=== PATIENT | male | born 1960 | race Hispanic/Latino ===

== ENCOUNTER 2017-08-03 16:48 | Emergency (ER) | payer SELFPAY ==
[~2017-08-03] VITALS: Ht 172.7 cm; Wt 103.0 kg
[2017-08-03 17:32] LABS: BASOPHILS # (AUTO) 0.1 (0.0-0.1); BASOPHILS % 0.4 % (0.0-1.0); EOSINOPHILS # (AUTO) 0.1 (0.0-0.4); EOSINOPHILS % 1.2 % (0.0-6.0); HEMATOCRIT 46.9 % (38.2-49.6); HEMOGLOBIN 15.7 g/dL (14.0-18.0); LYMPHOCYTES # (AUTO) 1.9 (1.0-3.2); MEAN CORPUSCULAR HEMOGLOBIN 30.4 pg (28-32); MEAN CORPUSCULAR HGB CONC 33.5 g/dL (31-35); MEAN CORPUSCULAR VOLUME 90.7 fL (81-99); MONOCYTES % 8.5 % (4.4-11.3); NEUTROPHILS # (AUTO) 8.6 (2.1-6.9); NEUTROPHILS % 73.6 % (38.7-80.0); PLATELET COUNT 226 x10e3/uL (140-360); RED BLOOD COUNT 5.17 x10e6/uL (4.3-5.7); RED CELL DISTRIBUTION WIDTH 14.6 % (11.7-14.4)
[2017-08-03 17:53] LABS: CALCIUM 8.7 mg/dL (8.4-10.2); CREATININE, SERUM 1.45 mg/dL (0.72-1.25)
--- NOTE | 2017-08-03 19:17 | Diagnostic Imaging Report ---
Two view chest x-ray INDICATION: Shortness of breath COMPARISON: None. FINDINGS: The cardiomediastinal silhouette is enlarged. There is no evidence of hilar lymphadenopathy. The pulmonary vascular markings are normal. Right basilar airspace opacity with associated pleural effusion. The left lung appears clear. Evaluation of the osseous structures demonstrates no focal abnormality. IMPRESSION: 1. Cardiomegaly without vascular congestion. 2. Right basilar airspace opacity is suggestive of either pneumonia with small associated pleural effusion. Please correlate with signs/symptoms of infection. Another entity to consider is infarct from pulmonary embolus. Signed by: Dr. Antoinette Anguiano MD on 08/03/2017 7:14 PM
[2017-08-03] MEDS ORDERED: SODIUM CHLORIDE 0.9% 500ML 500 ML IV ONE (20:15)
--- NOTE | 2017-08-03 21:53 | Diagnostic Imaging Report ---
EXAM: CT CHEST W DATE: 08/03/2017 7:33 PM Time stamp on exam: 2113 hours INDICATION: Leg swelling, shortness of breath, cough, abnormal chest x-ray COMPARISON: PA and lateral view of the chest August 03, 2017 TECHNIQUE: Multidetector CT scanning of the chest was performed. Coronal and sagittal multiplanar reformations were obtained. PE protocol performed. IV Contrast: 100 cc Isovue-370 CTDIvol has been reviewed. It is below the limits set by the Radiation Protocol Committee (RPC). FINDINGS: LUNGS AND AIRWAYS: The trachea and major bronchi are unremarkable. No consolidations or edema. Bibasilar atelectasis. Mild interlobular septal thickening and vascular congestion. PLEURA: Moderate layering right and small left pleural effusions. HEART, MEDIASTINUM, VESSELS: Global cardiomegaly. No thoracic aortic aneurysm. No pericardial effusion. Mildly prominent mediastinal lymph nodes. The main pulmonary artery is within normal size limits. Timing of contrast only allows evaluation to the segmental level. UPPER ABDOMEN: No acute findings. MUSCULOSKELETAL: No acute findings. IMPRESSION: 1. No evidence of a pulmonary embolism to the segmental level. 2. Volume overload manifested by cardiomegaly, vascular congestion and bilateral pleural effusions. Signed by: Dr. Elizabeth Whitlock M.D. on 08/03/2017 9:49 PM
[2017-08-03] MEDS ORDERED: IOPAMIDOL 370 MG/ML 200 ML INFUS..BTL INJ ONE (22:33)
[2017-08-03] MEDS ORDERED: SODIUM CHLORIDE 0.9% 50ML 50 ML ONE (22:33)
[2017-08-03 22:41] VITALS: BP 152/117
[2017-08-04] MEDS ORDERED: FUROSEMIDE INJ 10 MG/ML 4 ML VIAL IV SCH (09:00)
== END 2017-08-03 23:09 | disposition home or self-care (01) ==
LOC: ER 16:48
DX: I87.8 Other specified disorders of veins (principal); I51.7 Cardiomegaly; J81.1 Chronic pulmonary edema
CPT/HCPCS: 36415; 71020; 71260; 80053; 83880; 85025; 99284; J1940; J7040; Q9967